=== PATIENT | male | born 1970 | race Caucasian/White ===

== ENCOUNTER 2020-01-02 12:18 | Emergency (ER) | payer SELFPAY ==
[~2020-01-02] VITALS: Ht 193 cm; Wt 113.4 kg
--- NOTE | 2020-01-02 12:40 | NUR ---
ED Nurse Note:pt. was BIBA from home with alcohol intoxication, he is A/Ox1, arousable to voice, skin is intact no signs of injury noted, pt. was placed on the monitor, VSS, blood sent to labs, given IV fluids
--- NOTE | 2020-01-02 12:42 | Emergency Room Report ---
History of Present Illness General Chief Complaint: Alcohol Intoxication Source: Patient (Jakob Nye MD) Present Illness HPI Disclaimer: Please note that this report is being documented using AutoESLON technology. This can lead to erroneous entry secondary to incorrect interpretation by the dictating instrument. HPI: 49-year-old male with history of alcohol abuse brought in by EMS for alcohol intoxication altered mental status. According to EMS, the patient is a known alcoholic but has been sober for 6 months. His ex- has been checking on him regularly and previously reported that he had been on Antabuse which ran out 2 weeks ago. Ex- called him today but found his speech slurred. Called police and EMS for wellness check. Unable to arouse the patient they found him unconscious on the ground arousable to painful stimuli slurring his speech. He did report ingesting alcohol. EMS reports they found two empty 1 L liquor bottles next to him. Patient can respond in one-word answers and does admit to alcohol intoxication and denies drug use. PMH: Unable to obtain from patient PSH: Unable to obtain from patient Allergies: Unable to obtain from patient Social Hx: Alcohol dependence (Jakob Nye MD) Allergies: Coded Allergies: No Known Allergies (Unverified , 01/02/20) COVID-19 Screening Contact w/high risk pt: No Recent Travel to affected area: No Experienced COVID-19 symptoms?: No COVID-19 Testing performed BRUSH CLEANER: No (Jakob Nye MD) Nursing Documentation-PMH Past Medical History: No History, Except For (Jakob Nye MD) Review of Systems All Other Systems: negative except mentioned in HPI (Jakob Nye MD) Physical Exam Vital Signs Date Time Temp Pulse Resp B/P (MAP) Pulse Ox O2 Delivery O2 Flow Rate FiO2 01/02/20 12:12 97.0 80 16 132/90 (104) 100 Room Air General: Somnolent, arousable to painful stimuli only. HEENT: NC/AT. There are no scalp or face hematomas, lacerations or abrasions. EOMI. pupils are 4 mm and reactive bilaterally with noninjected sclera. Mucous membranes are dry. Cardiovascular: RRR. S1 and S2 normal. No murmur appreciated Resp: Normal work of breathing. No cough, wheezing or crackles appreciated Abdomen: Abdomen is soft, nondistended. Nontender Skin: Intact. No abrasions, laceration or rash over the exposed skin MSK: Normal tone and bulk. Moving all extremities. No obvious deformity. Neuro: Patient is somnolent but arousable to painful stimuli. GCS is 11. Moderate dysarthria. (Jakob Nye MD) Medical Decision Making Diagnostic Impression: Primary Impression: Acute alcoholic intoxication Qualified Codes: F10.929 - Alcohol use, unspecified with intoxication, unspecified ER Course Is a 49-year-old male presenting for evaluation of altered mental status. Concern for alcohol intoxication, drug use, metabolic abnormality. No evidence of external trauma. Will obtain labs, provide IV hydration and antiemetics. His vital signs are stable his GCS 11 protecting his airway. No respiratory distress. Will monitor closely. Labs were obtained showing no significant white count, normal kidney function, no electrolyte abnormalities. Patient alcohol level is positive at 428. He remains intoxicated will be allowed to metabolize. He will require reevaluation by oncoming physician once he is clinically sober for ultimate disposition. (Jakob Nye MD) ER Course Please see above note. Patient ambulated to bathroom with slightly unsteady gait. Evaluated afterwards. Patient denies intent to harm self. He does state he has a sponsor and will be "okay". Offered to contact his ex-. He declined. Offered patient to return to rehab. He declined. Will observe until gait is steadier and then consider discharge. 1525 C/O nausea. Pepcid and zofran given. C/O stomach pain. Abd benign. "I need valium. I am withdrawing." Use of alcohol for 2 days. Patient ambulating with steady gait. Stable for discharge. Extremely anxious and agitated. Given Librium here and Rx. "Can't you dispense the librium? I don't want to go to a pharmacy." Advised we could not. Patient calm at discharge. After discharge multiple encounters with security. Finally he requested to contact his ex- to pick him up. Laboratory Tests Test 01/02/20 12:35 01/02/20 14:00 White Blood Count 9.7 K/UL (4.8-10.8) Red Blood Count 5.35 M/UL (4.70-6.10) Hemoglobin 17.3 G/DL (14.2-18.0) Hematocrit 51.9 % (42.0-52.0) Mean Corpuscular Volume 97 FL (80-99) Mean Corpuscular Hemoglobin 32.4 PG (27.0-31.0) H Mean Corpuscular Hemoglobin Concent 33.3 G/DL (32.0-36.0) Red Cell Distribution Width 11.3 % (11.6-14.8) L Platelet Count 259 K/UL (150-450) Mean Platelet Volume 6.9 FL (6.5-10.1) Neutrophils (%) (Auto) 75.4 % (45.0-75.0) H Lymphocytes (%) (Auto) 17.7 % (20.0-45.0) L Monocytes (%) (Auto) 5.5 % (1.0-10.0) Eosinophils (%) (Auto) 0.7 % (0.0-3.0) Basophils (%) (Auto) 0.7 % (0.0-2.0) Sodium Level 141 MMOL/L (136-145) Potassium Level 3.6 MMOL/L (3.5-5.1) Chloride Level 102 MMOL/L (98-107) Carbon Dioxide Level 27 MMOL/L (21-32) Anion Gap 13 mmol/L (5-15) Blood Urea Nitrogen 11 mg/dL (7-18) Creatinine 0.8 MG/DL (0.55-1.30) Estimated Glomerular Filtration Rate > 60 mL/min (>60) Glucose Level 114 MG/DL (74-106) H Calcium Level 7.9 MG/DL (8.5-10.1) L Salicylates Level 1.5 ug/mL (2.8-20) L Acetaminophen Level < 2 MCG/ML (10-30) L Serum Alcohol 428 mg/dL Urine Opiates Screen Negative (NEGATIVE) Urine Barbiturates Screen Negative (NEGATIVE) Phencyclidine (PCP) Screen Negative (NEGATIVE) Urine Amphetamines Screen Negative (NEGATIVE) Urine Benzodiazepines Screen Negative (NEGATIVE) Urine Cocaine Screen Negative (NEGATIVE) Urine Marijuana (THC) Screen Positive (NEGATIVE) H (Rashel Serrano MD) Last Vital Signs Date Time Temp Pulse Resp B/P (MAP) Pulse Ox O2 Delivery O2 Flow Rate FiO2 01/02/20 12:12 97.0 80 16 132/90 (104) 100 Room Air (Jakob Nye MD) Last Vital Signs Date Time Temp Pulse Resp B/P (MAP) Pulse Ox O2 Delivery O2 Flow Rate FiO2 01/02/20 18:41 98.1 80 16 111/71 99 Room Air Status: improved (Rashel Serrano MD) Disposition: HOME, SELF-CARE Condition: Improved Scripts Chlordiazepoxide Hcl* (LIBRIUM*) 10 Mg Capsule 10 MG ORAL THREE TIMES A DAY, #12 CAP 0 Refills Prov: Rashel Serrano MD 01/02/20 Folic Acid* (FOLIC ACID*) 1 Mg Tablet 1 MG ORAL DAILY for 30 Days, #30 TAB Prov: Jakob Nye MD 01/02/20 Thiamine Hcl* (VITAMIN B-1*) 100 Mg Tablet 100 MG ORAL DAILY, #30 TAB 0 Refills Prov: Jakob Nye MD 01/02/20 Jakob Nye MD Jan 02, 2020 12:42 Rashel Serrano MD Jan 02, 2020 15:24
[2020-01-02 12:49] VITALS: BP 98/60
[2020-01-02 12:52] LABS: BASOPHILS % (AUTO) 0.7 % (0.0-2.0); EOSINOPHILS % (AUTO) 0.7 % (0.0-3.0); HEMATOCRIT 51.9 % (42.0-52.0); HEMOGLOBIN 17.3 G/DL (14.2-18.0); LYMPHOCYTES % (AUTO) 17.7 % (20.0-45.0); MEAN CORPUSCULAR VOLUME 97 FL (80-99); MONOCYTES % (AUTO) 5.5 % (1.0-10.0); NEUTROPHILS % (AUTO) 75.4 % (45.0-75.0); PLATELET COUNT 259 K/UL (150-450); RED BLOOD COUNT 5.35 M/UL (4.70-6.10); RED CELL DISTRIBUTION WIDTH 11.3 % (11.6-14.8); WHITE BLOOD COUNT 9.7 K/UL (4.8-10.8)
[2020-01-02 13:02] LABS: ANION GAP 13 mmol/L (5-15); BLOOD UREA NITROGEN 11 mg/dL (7-18); CALCIUM 7.9 MG/DL (8.5-10.1); CARBON DIOXIDE 27 MMOL/L (21-32); CHLORIDE 102 MMOL/L (98-107); CREATININE 0.8 MG/DL (0.55-1.30); POTASSIUM 3.6 MMOL/L (3.5-5.1); SODIUM 141 MMOL/L (136-145)
[2020-01-02] MEDS ORDERED: VITAMIN B-1100 MG ORAL (13:40)
[2020-01-02] MEDS ORDERED: FOLIC ACID1 MG ORAL (13:40)
[2020-01-02 14:44] VITALS: BP 92/48
--- NOTE | 2020-01-02 14:45 | NUR ---
ED Nurse Note:pt. is awake and alert but still drawsy, BP lower -given more fluids
[2020-01-02 15:11] VITALS: BP 97/56
[2020-01-02 16:55] VITALS: BP 103/66
--- NOTE | 2020-01-02 16:56 | NUR ---
ED Nurse Note: pt lying in left lateral with eye closed. no facial grimacing or moaning noted. pt went to restroom with steady gait. VSS. documented in VS assessment section. will wait until sober.
[2020-01-02] MEDS ORDERED: Mylanta II UD 30ml ORAL ONE (18:15)
[2020-01-02] MEDS ORDERED: LIBRIUM10 MG ORAL (18:21)
[2020-01-02] MEDS ORDERED: chlordiazePOXIDE 25mg Cap ORAL ONE (18:30)
[2020-01-02 18:41] VITALS: BP 111/71
--- NOTE | 2020-01-02 18:42 | NUR ---
ER DISCHARGE NOTE: Patient is cleared to be discharged per ERMD, pt is aox4, on room air, with stable vital signs. pt was given dc and prescription instructions, pt was able to verbalize understanding, pt id band and iv site removed without complications. pt is able to ambulate with steady gait. pt took all belongings.
== END 2020-01-02 18:43 | disposition home or self-care (01) ==
LOC: EDBD 12:18 → EMR 13:56
DX: F10.129 Alcohol abuse with intoxication, unspecified (principal)
CPT/HCPCS: 36415; 80048; 80307; 85025; 96361; 96374; 96375; 99284; G0480; J2405; J7030; S0028

== ENCOUNTER 2020-04-02 17:53 | Emergency (ER) | payer SELFPAY ==
[~2020-04-02] VITALS: Ht 188 cm; Wt 90.7 kg
[~2020-04-02 17:53] MED LIST: FOLIC ACID1 MG ORAL; LIBRIUM10 MG ORAL; VITAMIN B-1100 MG ORAL
[2020-04-02 17:58] VITALS: BP 142/80
--- NOTE | 2020-04-02 17:58 | NUR ---
ED Nurse Note: Pt donna RA [id number] accompanied by [employer] from home. Per report pt called family saying he wanted to kill himself, family then called 911 and pt was placed on a hold for DTS, pt also here for alcohol intoxication. When speaking with pt verbalized, "I never said that." Safety precautions in place, room checked for safety and is free of harmful objects. Will continue to monitor.
--- NOTE | 2020-04-02 18:07 | NUR ---
ED Nurse Note: belongings placed in locker 1
--- NOTE | 2020-04-02 18:20 | NUR ---
ED Nurse Note: blood sent to lab
--- NOTE | 2020-04-02 18:30 | NUR ---
ED Nurse Note: urine sent to lab
--- NOTE | 2020-04-02 18:31 | NUR ---
ED Nurse Note: pt c/o back pain pt states he fell yesterday, pt also c/o "shaking", no visible tremors noted EDMD aware
[2020-04-02 18:33] LABS: HEMATOCRIT 42.3 % (42.0-52.0); HEMOGLOBIN 14.6 G/DL (14.2-18.0); MEAN CORPUSCULAR VOLUME 95 FL (80-99); PLATELET COUNT 210 K/UL (150-450); RED BLOOD COUNT 4.46 M/UL (4.70-6.10); RED CELL DISTRIBUTION WIDTH 11.8 % (11.6-14.8); WHITE BLOOD COUNT 9.2 K/UL (4.8-10.8)
[2020-04-02] MEDS ORDERED: Haloperidol 5mg/ml Inj IM ONE (18:45)
[2020-04-02] MEDS ORDERED: Ketorolac 30mg Inj IV ONE (18:45)
[2020-04-02 18:47] LABS: ANION GAP 10 mmol/L (5-15); BLOOD UREA NITROGEN 11 mg/dL (7-18); CALCIUM 8.2 MG/DL (8.5-10.1); CARBON DIOXIDE 28 MMOL/L (21-32); CHLORIDE 101 MMOL/L (98-107); CREATININE 0.8 MG/DL (0.55-1.30); POTASSIUM 3.8 MMOL/L (3.5-5.1); SODIUM 139 MMOL/L (136-145)
[2020-04-02 18:50] LABS: BASOPHILS % (AUTO) 0.5 % (0.0-2.0); EOSINOPHILS % (AUTO) 0.2 % (0.0-3.0); LYMPHOCYTES % (AUTO) 9.7 % (20.0-45.0); MONOCYTES % (AUTO) 4.6 % (1.0-10.0)
[2020-04-02 18:57] LABS: ALANINE AMINOTRANSFERASE 42 U/L (12-78); ALBUMIN 3.7 G/DL (3.4-5.0); ALBUMIN/GLOBULIN RATIO 1.3 (1.0-2.7); ALKALINE PHOSPHATASE 91 U/L (46-116); ASPARTATE AMINO TRANSFERASE 62 U/L (15-37); BILIRUBIN,TOTAL 1.1 MG/DL (0.2-1.0)
[2020-04-02 19:00] LABS: BILIRUBIN,DIRECT 0.3 MG/DL (0.0-0.3)
[2020-04-02] MEDS ORDERED: DiphenhydrAMINE 50mg/ml Inj IVP ONE (19:00)
[2020-04-02 19:01] LABS: BILIRUBIN, URINE NEGATIVE (NEGATIVE); GLUCOSE, URINE (UA) NEGATIVE (NEGATIVE); KETONES,URINE NEGATIVE (NEGATIVE); LEUKOCYTE ESTERASE ,URINE NEGATIVE (NEGATIVE); NITRITE,URINE NEGATIVE (NEGATIVE); PH,URINE 6 (4.5-8.0); PROTEIN,URINE 2+ (NEGATIVE); UROBILINOGEN,URINE NORMAL MG/DL (0.0-1.0)
[2020-04-02 19:03] LABS: APPEARANCE,URINE SLIGHTLY CLOUDY; COLOR,URINE YELLOW
--- NOTE | 2020-04-02 19:27 | NUR ---
HAND-OFF: Report given to TRIPP Smith .
--- NOTE | 2020-04-02 19:50 | NUR ---
Nurse Note: Pt restless in bed; cooperative. Pt aware of setting. Pt stated he wants to go home. Explained to pt that he is on a 5150 hold. Attempted theraputic communication. RN at pt side; behavioral precations continued. All safety measures met; will continue to montior.
--- NOTE | 2020-04-02 19:57 | Emergency Room Report ---
History of Present Illness General Chief Complaint: Behavioral Complaint Source: Patient (Remi Stapleton) Present Illness HPI 49-year-old male with history of alcohol abuse and anxiety brought in by paramedics and [employer] on a 5150 hold due to suicidal ideation and alcohol intoxication. Patient reports that he was at [facility] last night for the same thing and a prescription that was given for Ativan did not go through the pharmacy, which made him upset, and he started to drink alcohol again. Reports that he finished a whole bottle of vodka. Denies any drug use and tobacco smoke. Denies any pain at this time however later reports that his back hurts which he might of fell however reports that he might have fallen long time ago which she does not recall. Back appears to be atraumatic. Keeps requesting something for tremors however he does not have any tremors at this time. Feels like he is agitated. Reports that he is from [facility] and he recently moved to [place] and he used not to drink alcohol however lately he has been drinking a lot of alcohol. Patient speaking full sentences, and answers all questions. Denies any other past medical history. Patient has not noticed any specific plans in regard to suicidal ideation (Remi Stapleton) Allergies: Coded Allergies: ASPIRIN (Unverified Allergy, Unknown, 04/02/20) PENICILLINS (Verified Allergy, Unknown, 04/02/20) COVID-19 Screening COVID-19 risk:Contact w/high r: No COVID-19 risk:Travel to affect: No Has patient experienced fraire: No COVID-19 Testing performed CARGO INSPECTOR: No (Remi Stapleton) Patient History Past Medical History: see triage record Past Surgical History: unable to obtain Family History: unable to obtain Social History: ETOH Immunizations: UTD Reviewed Nursing Documentation: PMH: Agreed; PSxH: Agreed (Remi Stapleton) Review of Systems All Other Systems: negative except mentioned in HPI (Remi Stapleton) Physical Exam Vital Signs Date Time Temp Pulse Resp B/P (MAP) Pulse Ox O2 Delivery O2 Flow Rate FiO2 04/02/20 17:53 97.9 92 18 136/82 (100) 98 Room Air Sp02 EP Interpretation: reviewed, normal General Appearance: alert/responsive Head: atraumatic Eyes: PERRL, lids + conjunctiva normal ENT: hearing intact, no angioedema Neck: supple/symm/no masses, no meningismus Respiratory: no rhonchi, no wheezing Cardiovascular: regular rate, rhythm, no edema Cardiovascular #2: 2+ carotid (R), 2+ carotid (L), 2+ radial (R), 2+ radial (L), 2+ dorsalis pedis (R), 2+ dorsalis pedis (L) Gastrointestinal: non-tender, no mass, non-distended, no rebound/guarding, normal bowel sounds Musculoskeletal: gait & station normal, normal ROM, non-tender Neurologic: oriented x3, sensory intact, normal speech Psychiatric: anxious Skin: no rash Lymphatic: normal inspection (Remi Stpaleton) Medical Decision Making PA Attestation All my diagnosis and treatment plans were reviewed ad discussed with my [facility] physician Dr. Solano (Remi Stapleton) Diagnostic Impression: Primary Impression: Suicidal ideation Additional Impression: Alcohol intoxication ER Course 49-year-old male with history of alcohol abuse and anxiety brought in by paramedics and [employer] on a 5150 hold due to suicidal ideation and alcohol intoxication. Patient reports that he was at [facility] last night for the same thing and a prescription that was given for Ativan did not go through the pharmacy, which made him upset, and he started to drink alcohol again. Reports that he finished a whole bottle of vodka. Denies any drug use and tobacco smoke. Denies any pain at this time however later reports that his back hurts which he might of fell however reports that he might have fallen long time ago which she does not recall. Back appears to be atraumatic. Keeps requesting something for tremors however he does not have any tremors at this time. Feels like he is agitated. Reports that he is from [facility] and he recently moved to [place] and he used not to drink alcohol however lately he has been drinking a lot of alcohol. Patient speaking full sentences, and answers all q uestions. Denies any other past medical history. Patient has not noticed any specific plans in regard to suicidal ideation Ddx considered but are not limited to: Alcohol intoxication with altered level of consciousness, alcohol intoxication causing pancreatitis, alcohol abuse, multi drug use and alcohol intoxication , Anxiety, suicidal ideation Vital signs: are WNL, pt. is afebrile H&PE are most consistent with: Alcohol intoxication, suicidal ideation ORDERS: Psychiatric order set ER intervention: Nichole Doan Zofran, Benadryl I signed out the patient to Dr. Solano at 8:00PM (Remi Stapleton) ER Course Assumed care of the patient from previous provider. Vital signs stable and in no acute distress Briefly this is a 49-year-old male brought in on 5150 hold. He was intoxicated and mother states that he had claimed to kill himself by drinking alcohol. Patient denies suicidality. He was medically cleared for psychiatric evaluation. He has been valued by Dr. Chavez and determined not to be a danger to self or others. Patient be referred to outpatient psychiatric services. Instructed to return should he have thoughts of harming self or others or need help with drug or alcohol use. (Jakob Nye MD) Last Vital Signs Date Time Temp Pulse Resp B/P (MAP) Pulse Ox O2 Delivery O2 Flow Rate FiO2 04/02/20 17:58 97.8 87 18 142/80 98 Room Air (Remi Stapleton) Disposition: HOME, SELF-CARE Condition: Stable Referrals: NOT CHOSEN IPA/,REFERRING (PCP) Remi Stapleton Apr 02, 2020 19:57 Jakob Nye MD Apr 03, 2020 13:29
[2020-04-02 20:10] VITALS: BP 148/74
[2020-04-02] MEDS ORDERED: Thiamine HCl 100 MG in D5W 55 ML IVPB ONE (21:00)
[2020-04-02] MEDS ORDERED: LORazepam Inj 2mg/ml 1ml IV ONE (21:00)
--- NOTE | 2020-04-02 21:20 | NUR ---
Nurse Note: Pt wandering room and hallway. Pt directable but agitated. Pt started yelling and thrashing in bed. Pt yelled "I need help!". MD aware; administred medication per MD orders.
--- NOTE | 2020-04-02 22:30 | NUR ---
Nurse Note: Pt calm, cooperative, laying in bed. Pt infusing fluids via LT AC IV. RAPID covid swab sent to lab. All safety measures met; will continue to monitor.
--- NOTE | 2020-04-02 23:36 | NUR ---
Nurse Note: Pt resting in bed; cooperative. Pt aware of setting. RN at pt side; behavioral precautions continued. All safety measures met; will continue to montior.
[2020-04-03] VITALS (7 sets, daily range): BP systolic 122–139; BP diastolic 70–84
--- NOTE | 2020-04-03 00:40 | NUR ---
Nurse Note: Pt resting in bed; asleep but easily arousable. No signs of distress noted. Offered blankets, water, urinal; pt remains alseep.RN at pt side; behavioral precautions continued. All safety measures met; will continue to montior.
--- NOTE | 2020-04-03 01:54 | NUR ---
Nurse Note: Pt resting in bed; asleep. No signs of distress noted. RN at pt side; behavioral precautions continued. All safety measures met; will continue to montior.
--- NOTE | 2020-04-03 02:20 | NUR ---
Nurse Note: Report blood drawn and sent to lab. Pt copperative. SLIV LT AC intact. All safety measures met; will continue to [facility].
--- NOTE | 2020-04-03 03:31 | NUR ---
Nurse Note: Pt resting in bed; juice provided. PT cooperative. No signs of distress noted. RN at pt side; behavioral precautions continued. All safety measures met; will continue to montior.
--- NOTE | 2020-04-03 04:15 | NUR ---
Nurse Note: Pt in room, redirectable. Pt reminded that he is on a hold and cannot leave. No signs of distress noted. RN at pt side; behavioral precautions continued. All safety measures met; will continue to melvin. Addendum: 04/03/20 at 0435 by [email or web address] Pt stated he is feeling anxious and needs to talk to the MD after being told he cannot leave the hospital. MD aware and spoke with pt. All orders completed per ERMD orders. Behavioral precautions continued. All safety measures met; lucille continue to melvin.
[2020-04-03] MEDS ORDERED: chlordiazePOXIDE 25mg Cap ORAL ONE (04:30)
[2020-04-03] MEDS ORDERED: LORazepam Inj 2mg/ml 1ml IV ONE ×2 (04:30→08:15)
--- NOTE | 2020-04-03 05:42 | NUR ---
Nurse Note: Pt awake, no signs of distress noted. Mild hand tremors noted. RN at pt side; behavioral precautions continued. All safety measures met; will continue to montior.
--- NOTE | 2020-04-03 06:28 | NUR ---
Nurse Note: Pt awake, no signs of distress noted. Pt easily arousable. RN at pt side; behavioral precautions continued. All safety measures met; will continue to montior.
--- NOTE | 2020-04-03 07:03 | NUR ---
Nurse Note: Report given TRIPP Eagle
--- NOTE | 2020-04-03 07:05 | NUR ---
ED Nurse Note: Patient resting in bed with eyes open, calm and cooperative, denies suicidal ideation. Patient offered nourishment and toileting. Sitter at bedside. Safety measures in place.
--- NOTE | 2020-04-03 08:30 | NUR ---
ED Nurse Note: Patient feeling nauseated, has slight hand tremors. Per ERMD, will give ordered medications.
--- NOTE | 2020-04-03 10:30 | NUR ---
ED Nurse Note: Patient calm and cooperative, patient contiues to deny suicidal ideation, states "I feel fine, I never said I wanted to harm myself. My mother called 911 because she is worried about my drinking and told them I am going to drink myself to ." VSS, no s/s of acute distress.
--- NOTE | 2020-04-03 12:45 | NUR ---
ED Nurse Note: DR. SCHMITZ ASSESSED THE PT. AND LIFTED THE HOLD
[2020-04-03] MEDS ORDERED: LIBRIUM10 MG ORAL (13:14)
--- NOTE | 2020-04-03 13:15 | NUR ---
ED Nurse Note: Pt cleared by health care Provider for discharge. Patient states he feels good, he is not suicidal, states he will follow up with psychiatrist. Patient belongings given to patient and he called [facility] for transport. DC instructions given and explained to pt and verbalized understanding of teachings. ID band and IV Pt is AAO x4, ambulatory and left with all personal belongings.
--- NOTE | 2020-04-03 19:45 | Consultation ---
DATE OF CONSULTATION: 04/03/2020 CONSULTING PHYSICIAN: Terence Chavez MD. HISTORY OF PRESENT ILLNESS: This is a 49-year-old male with a history of alcohol dependence who has been brought into the emergency room on a 5150. Patient apparently was intoxicated and stated that he wanted to kill himself. Patient also was at [facility], received prescription for Ativan. Patient's mother also has been calling the ER with concerns that the son may wanting to kill himself. During the evaluation, he stated that he denied stating suicidal ideation. He stated that he has been on Vivitrol shots and he stopped taking the shots. He was also here in December for alcohol intoxication. He is denying any current suicidal or homicidal ideation. He is not anxious. He is calm. He is able to answer the questions appropriately. He denies any psychiatric hospitalization. Patient has been in the past and is still in touch with his ex-. He also has been taking Antabuse in the past. PAST PSYCHIATRIC HISTORY: Depression and anxiety. However, he has poor insight into his psychiatric impairments and he believes his only issue is alcohol. PAST MEDICAL ISSUES: Significant for abnormal liver enzymes. He is also having . AST is high. ALLERGIES: Penicillin, aspirin. MENTAL STATUS EXAMINATION: Alert, oriented times self, place, situation, and date. Mood is neutral. Affect is blunted, congruent with mood. Thought process is concrete. Thought content, no suicidal or homicidal ideation. No psychotic symptoms. Cognition is intact. Insight and judgment is fair. ASSESSMENT: [place] I Alcohol dependence. Cannabis dependence, rule out MDD. [place] II Deferred. [place] III As above. [place] IV Low. [place] V 50. PLAN: We will discharge the patient. We do not have any Antabuse or Vivitrol shots in the hospital. Patient will go back to his psychiatrist. His insurance is going to start from 04/07/2020. He has a new job and moved to [place] from [place] recently. Patient's 5150 will be discontinued. Patient is not an imminent danger to self or others. Terence Chavez M.D. DR: RAMSES JOB#: [id number] CC:
== END 2020-04-03 13:15 | disposition home or self-care (01) ==
LOC: EDBD 17:53 → EMR 18:52
DX: R45.851 Suicidal ideations (principal); F10.129 Alcohol abuse with intoxication, unspecified; F41.9 Anxiety disorder, unspecified; Z88.0 Allergy status to penicillin; Z88.6 Allergy status to analgesic agent; F32.9 Major depressive disorder, single episode, unspecified; F12.20 Cannabis dependence, uncomplicated
CPT/HCPCS: 36415; 80053; 80307; 81003; 82248; 83690; 85025; 96361; 96365; 96372; 96375; 96376; 99284; G0480; J1200; J1630; J1885; J2405; J7030; S0028; U0002